=== PATIENT | male | born 1970 | race Caucasian/White ===

== ENCOUNTER 2023-01-11 12:54 | Outpatient (CLI) | payer OTHER, SELFPAY | END 2023-01-11 12:55 | disposition home or self-care (01) | LOC: AMB 01-15 09:58 | PROVIDERS: Visit Provider Family Medicine | DX: T63.441A Toxic effect of venom of bees, accidental (unintentional), initial encounter (principal) | CPT/HCPCS: A0425; A0429 ==

== ENCOUNTER 2023-01-11 13:18 | Emergency (ER) | payer OTHER, SELFPAY ==
[2023-01-11 13:29] VITALS: BP 124/77; PULSE 85; RESP 20; TEMP 36.8; O2SAT 93; BMI 38.4
[2023-01-11 13:32] VITALS: O2SAT 91
[2023-01-11] MEDS: METHYLPREDNISOLONE SOD SUCC 62.5 MG/ML (125) 125 MG IVP (13:41)
[2023-01-11] MEDS: 0.9 % SODIUM CHLORIDE 1000 ml 1,000 ML IV (13:47)
--- NOTE | 2023-01-11 15:39 | ED.ALLEREA ---
HPI - Allergic Reaction General Date Seen: 01/11/23 Chief complaint: Allergic Reaction Stated complaint: Allergic Reaction Time Seen by Provider: 01/11/23 13:22 Source: patient and EMS Mode of arrival: EMS Limitations: no limitations History of Present Illness HPI narrative: Patient is a very nice gentleman who presents here by EMS after he was stung by 2 bees, and is allergic to bees. This occurred at [employer] were is working, he was just coming of the outdoor toilet, they started him on the right triceps region, he then felt like he may be starting allergic reaction, for him would be feeling of heat, he did not have shortness of breath no tongue swelling, gave him doses of 2 epi pens, in both of his thighs bilaterally, when I asked him why 2, he said 1 was almost . He has had previous reactions were he had to go to the ER, no hospitalizations, no tongue swelling. Presents here for evaluation. No rashes, no tongue swelling complaint: allergic reaction Onset (ago): minute(s) Exposure: insect bite Symptoms: dizziness and nausea Severity: mild Previous Allergic Reaction History: prior ED visit(s) and anaphylaxis Related Data Home Medications Medication Instructions Recorded Confirmed citalopram 40 mg tablet 40 mg PO DAILY 01/11/23 01/11/23 epinephrine 0.3 mg/0.3 mL 0.3 ml IM Q5-15M PRN 01/11/23 01/11/23 injection, auto-injector (EpiPen) trazodone 50 mg tablet 50 mg PO QPM 01/11/23 01/11/23 Previous Rx's Medication Instructions Recorded epinephrine 0.3 mg/0.3 mL 0.3 ml IM Q5-15M PRN #2 ea 01/11/23 injection, auto-injector Allergies Allergy/AdvReac Type Severity Reaction Status Date / Time bee pollen Allergy Severe Anaphylaxis Verified 01/11/23 13:29 paper tape AdvReac Mild Rash Uncoded 01/11/23 13:29 Review of Systems Status of ROS Reports: 10 or more systems reviewed and unremarkable except as noted in History and below [facility] Social History Smoking Status: Never smoker Do you use any of these nicotine containing products: None Second hand tobacco smoke exposure: No How often do you have a drink containing alcohol: monthly or less How many standard drinks containing alcohol do you have on a typical day: 1 or 2 How often do you have six or more drinks on one occasion: Never AUDIT-C Alcohol total score: 1 Non-prescribed substance use: denies use service: No Exam Narrative: Exam Narrative: On examination in room 1 he is in no apparent distress, pupils equal round reactive to light nontoxic GCS is 15/15, speaking to me normally, pupils are equal round reactive to light no scleral icterus redness TMs are normal oropharynx normal. No tongue or lip swelling notable. Chest is clear easy respirations heart sounds are normal abdomen soft, moves all extremities independently well with absence of rashes, not even the jittery secondary to 2 injections. Const: Vital Signs, click to edit/add: Vital Signs - 24 hr 01/11/23 13:29 01/11/23 13:32 Temperature 98.2 F Pulse Rate [Pulse Oximeter] 85 Respiratory Rate 20 Blood Pressure [Ri ght Upper Arm] 124/77 Pulse Oximetry 93 91 Oxygen Delivery Me thod Room Air Documenting provider has reviewed patient's vital signs: yes Course Vital Signs Vital signs: Initial Vital Signs Temperature 98.2 F 01/11/23 13:29 Temperature Source Temporal Artery Scan 01/11/23 13:29 Pulse Rate 85 01/11/23 13:29 Respiratory Rate 20 01/11/23 13:29 Blood Pressure 124/77 01/11/23 13:29 Blood Pressure Mean 92 01/11/23 13:29 Blood Pressure Position Sitting 01/11/23 13:29 Pulse Oximetry 93 01/11/23 13:29 Oxygen Delivery Method Room Air 01/11/23 13:29 Vital Signs Temperature 98.2 F 01/11/23 13:29 Pulse Rate 85 01/11/23 13:29 Respiratory Rate 20 01/11/23 13:29 Blood Pressure 124/77 01/11/23 13:29 Pulse Oximetry 93 01/11/23 13:29 Oxygen Delivery Method Room Air 01/11/23 13:29 Temperature 98.2 F 01/11/23 13:29 Pulse Rate 85 01/11/23 13:29 Respiratory Rate 20 01/11/23 13:29 Blood Pressure 124/77 01/11/23 13:29 Pulse Oximetry 91 01/11/23 13:32 Oxygen Delivery Method Room Air 01/11/23 13:29 MDM - Allergic Reaction Differential Diagnosis Differential diagnosis: Likely anaphylaxis, allergic reaction, angioedema, adverse reaction to drug, viral enanthem and urticaria Medical Records Attestation: I reviewed the patient's medical records. Discharge Plan Discharge Clinical Impression: Allergic reaction Patient Disposition: Home, Self-Care Condition: Stable Instructions: General Allergic Reaction (ED), Allergy Testing (ED) Additional Instructions: Home rest prescription given for another EpiPen, prescription given for prednisone, return here if any signs or moves symptoms of worsening. Activity Level: Light activity Prescriptions: New epinephrine 0.3 mg/0.3 mL auto-injector 0.3 ml IM Q5-15M PRNQty: 2 0RF Rx Instructions: do not exceed 3 doses per episode No Action citalopram 40 mg tablet 40 mg PO DAILY trazodone 50 mg tablet 50 mg PO QPM epinephrine [EpiPen] 0.3 mg/0.3 mL auto-injector 0.3 ml IM Q5-15M PRN Rx Instructions: do not exceed 3 doses per episode Follow Up/Referrals: Provider,Not a Local [Primary Care Provider] - Stand Alone Forms: [facility] Info Instructions
== END 2023-01-11 16:05 | disposition home or self-care (01) ==
PROVIDERS: Emergency Provider Family Medicine
DX: T63.441A Toxic effect of venom of bees, accidental (unintentional), initial encounter (principal)
CPT/HCPCS: 94761; 96374; 99283; 99284; J2930; J7030